=== PATIENT | female | born 1990 | race Caucasian/White ===

== ENCOUNTER 2021-03-14 20:18 | Emergency (ER) | payer OTHER, SELFPAY ==
[2021-03-14 20:23] VITALS: BP 153/106; PULSE 108; RESP 20; TEMP 36.6; O2SAT 98
--- NOTE | 2021-03-14 20:45 | DI.CT_ITS ---
Exam(s) CT FACIAL WO EXAM: CT FACIAL WO CLINICAL HISTORY: ball injury. TECHNIQUE: Imaging Protocol: Axial computed tomography images with coronal and sagittal reformatted images were created and reviewed COMPARISON: No exams were available for comparison FINDINGS: CT Face: Facial Bones: No definite fracture is noted in facial bones. Sinuses and Mastoids: Unremarkable. Globes, extraocular muscles, optic nerves and retrobulbar fat: Normal. Upper aerodigestive tract: Normal. Mandible and bilateral temporomandibular joints: Normal. Soft tissues: Right periorbital and infraorbital soft tissue swelling. No focal fluid collection is seen. IMPRESSION: 1. No acute facial fracture. 2. Right periorbital and infraorbital soft tissue swelling. RADIATION DOSE DELIVERED: 604.79mGy.cm Total DLP 604.79mGy.cm Total DLP DATA REPOSITORY: All CT scans at this facility are submitted to the National Radiology Data Registry (NRDR) Dose Index Registry (DIR) with the [employer] (A[employer]). RADIATION OPTIMIZATION: All CT scans at this facility use at least one of these dose optimization te chniques: automated exposure control; mA and/or kV adjustment per patient size (includes targeted exa ms where dose is matched to clinical indication); or iterative reconstruction.
--- NOTE | 2021-03-14 20:58 | ED.GENADUL_ITS ---
Discharge Plan Disposition Patient Disposition: HOME Condition: Stable Discharge Details Clinical Impression: Periorbital ecchymosis Primary Care Provider: Ruth Ulloa ED Provider: Kristal Mendez Home Meds and New Rx's Prescriptions: Continued omeprazole 20 mg capsule,delayed release(DR/EC) 20 mg PO DAILY Qty: 90 RF: 4 Mirena 1 EACH intrauterine device 1 ea Intrauterine DAILY RF: 0 acetaminophen [Tylenol] 325 mg Tablet 650 mg PO PRN PRNRF: 0 Discharge Instructions Additional Instructions: Cool compresses Steroid from ibuprofen Tylenol as needed for discomfort Should you have vision change, worsening pain, difficulty moving your eyes or any change in your peripheral vision, please return immediately to the emergency room Medical Decision Making CT does not show evidence of acute abnormality per radiology interpretation review Tylenol Tylenol as needed for pain Return precautions discussed with patient and she expressed understanding understanding Medical Records Medical records reviewed: Yes I reviewed the patient's medical records. HPI General Mode of arrival: ambulatory . Date/Time Provider Initiated Documentation: 03/14/21 20:39 . Limitations to Documentation: no limitations . Information obtained by: patient . HPI Narrative: This 30-year-old female presents with report of possible injury to right orbit just prior to arrival at 1130. Patient states she was fine softball and was in the outfield when she missed the ball, hit her in the right eye. She denies loss of consciousness. She had blurred vision several seconds which resolved completely. She presents here secondary to person distant and worsening swelling to her eye. She denies any vision changes currently. She denies any nausea or vomiting. She denies any headache. She denies any neck pain or strength or sensation change. She denies any chance of . Related Data Home Medications Medication Instructions Recorded Confirmed Mirena 1 ea INTRAUTERINE DAILY 03/05/13 03/14/21 omeprazole 20 mg capsule,delayed 20 mg PO DAILY #90 tab-cap 07/03/20 03/14/21 release acetaminophen [Tylenol] 650 mg PO PRN PRN 03/14/21 03/14/21 Previous Rx's Medication Instructions Recorded omeprazole 20 mg capsule,delayed 20 mg PO DAILY #90 tab-cap 07/03/20 release Allergies Allergy/AdvReac Type Severity Reaction Status Date / Time No Known Drug Allergies Allergy Verified 03/14/21 20:26 General Stated Complaint: EyeProblem HARSHA: 4 Review of Systems All systems reviewed & are unremarkable except as noted in HPI and below PFSH Medical History (Updated 03/14/21 @ 22:56 by YESENIA Olivrea) Allergic rhinitis (01/20/17) Chlamydia trachomatis infection 02/2013 rx Elevated BP without diagnosis of hypertension Encounter for routine gynecological examination (02/15/12) GERD (gastroesophageal reflux disease) (12/09/16) Increased body mass index (BMI) IUD (intrauterine device) in place 01/2010 MIRENA Screening cholesterol level Surgical History EGD - MAC (12/28/16) Family History (Updated 07/04/20 @ 14:57 by Adela Haynes) Grandmother Diabetes TYPE II Father Essential hypertension Social History (Updated 07/04/20 @ 14:56 by Adela Haynes) Smoking/Tobacco Use Status: Never Second Hand Exposure: Yes Smoking risk assessment performed?: Yes Alcohol Intake: current Alcohol Intake frequency: a few times a week Alcohol type: beer, wine and hard liquor Drug use: Never Substance use type: does not use Caregiver/Support person: No Household members: other Details: roomate Communication Needs: None Do you need help understanding health information?: Rarely 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: Yes 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: dog(s) Sexually active: Yes Do you think of yourself as: straight/heterosexual Current gender identity: female What is your relationship status?: living with partner How often do you talk on the phone with friends or family?: three or more times per week How often do you get together with friends or relatives?: twice per week How often do you attend confucianism or holiness services?: decline to answer Do you belong to any clubs or organized social groups?: no Panel score (0-1 are the most socially isolated patients): 2 What type of physical activity do you participate in: other Details: GYM Duration: 45-60 minutes/day Frequency: 3-4 times per week Seatbelt use: sometimes 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 Do you feel safe in your relationship?: Yes Exam Const General: cooperative, comfortable and no acute distress Eyes Pupils: PERRL EOM: EOM intact bilaterally Other: Right periorbital ecchymosis with tenderness inferiorly into the maxillary region with, no crepitus, no hemotympanum, Neck Other: No carotid bruit or midline tenderness Resp Effort & Inspection: normal respiratory effort Cardio Rate: regular rate Skin General skin exam: no rashes or lesions noted Neuro General: patient alert and patient oriented x3 Cranial Nerves: CN's II-XI intact bilaterally Cognition: normal cognition Speech: speech normal Gait: normal gait Motor: strength 5/5 throughout Course Vital Signs Vital signs: Vital Signs Temperature 36.6 C 03/14/21 20:23 Pulse 108 H 03/14/21 20:23 Respiratory Rate 20 03/14/21 20:23 Blood Pressure 153/106 H 03/14/21 20:23 Pulse Oximetry 98 03/14/21 20:23 Temperature 36.6 C 03/14/21 20:23 Temperature Source Temporal Artery Scan 03/14/21 20:23 Pulse 108 H 03/14/21 20:23 Respiratory Rate 20 03/14/21 20:23 Respiratory Effort 03/14/21 20:30 Blood Pressure 153/106 H 03/14/21 20:23 Blood Pressure Position Sitting 03/14/21 20:23 Pulse Oximetry 98 03/14/21 20:23 Pain Level 2 03/14/21 20:23 Lab/Test Results Lab/Test Results: POC- Test(urine) Negative
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
== END 2021-03-14 23:01 | disposition home or self-care (01) ==
PROVIDERS: Emergency Provider Physician Assistant
DX: S00.11XA Contusion of right eyelid and periocular area, initial encounter (principal); W21.07XA Struck by softball, initial encounter
CPT/HCPCS: 81025; 99284; 70486; 99283

== ENCOUNTER 2021-08-27 11:51 | Outpatient (REF) | payer OTHER, SELFPAY ==
--- NOTE | 2021-08-27 11:00 | PAPFT_PTH ---
PATIENT: Raven Knight LOC: [facility] U#:[id number] AGE/SX: 30/F ROOM: RE08/27/[address]: Yesica Parham DO : 1990 BED: DIS: 08/27/2021 SPEC #: [id number] RECD: 08/27/21 12:39 STATUS: FADUMO REQ #: [id number] HERVE: 08/27/21 11:[address]: Yesica Parham [facility] Cytology RECD BY: Kristal Cummins ENTERED: 08/27/21 12:39 SP TYPE: PAPFT OTHR DR: Ruth Ulloa APRN Tissues: 1 - CX/ENDOCX FOR PAP SMEARS Procedures: PAP THIN PREP/[facility] Screening HPV DNA PROBE Comments: [id number] (CHLAMYDIA/GC)
[2021-08-28 15:08] LABS: Chlamydia Result Negative (Negative); GC Result Negative (Negative)
== END 2021-08-27 11:52 | disposition home or self-care (01) ==
LOC: LBN 11:51
PROVIDERS: Visit Provider Obstetrics & Gynecology
DX: Z11.3 Encounter for screening for infections with a predominantly sexual mode of transmission (principal); Z12.4 Encounter for screening for malignant neoplasm of cervix; Z11.51 Encounter for screening for human papillomavirus (HPV); Z97.5 Presence of (intrauterine) contraceptive device
CPT/HCPCS: 87491; 87591; 88142; 87624

== ENCOUNTER 2021-09-10 02:13 | Outpatient (CLI) | payer OTHER, SELFPAY ==
[2021-09-10 09:21] LABS: ALT 33 U/L (14-59); AST 15 U/L (15-37); Albumin 3.8 g/dL (3.4-5.0); Alkaline Phosphatase 60 U/L (46-116); Anion Gap 8.7 mmol/L (3-11); BUN 17 mg/dL (7-18); Bilirubin, Total 0.4 mg/dL (0.2-1.0); CO2 26.3 mmol/L (21.0-32.0); CREATININE 0.8 mg/dL (0.55-1.02); Calcium 8.2 mg/dL (8.5-10.1); Calculated LDL 120 mg/dL (<100); Chloride 107 mmol/L (98-107); Cholesterol 192 mg/dL (<200); Glucose 95 mg/dL (74-106); HDL Cholesterol 56 mg/dL (40-60); Potassium 4.2 mmol/L (3.5-5.1); Sodium 142 mmol/L (136-145); TSH (W/Ref FT4) 2.29 uIU/mL (0.36-3.74); Total Protein 6.7 g/dL (6.4-8.2); Triglyceride 82 mg/dL (<150)
== END 2021-09-10 02:14 | disposition home or self-care (01) ==
LOC: LBO 02:13
DX: Z00.00 Encounter for general adult medical examination without abnormal findings (principal)
CPT/HCPCS: 36415; 80053; 80061; 84443

== ENCOUNTER 2021-09-24 09:14 | Outpatient (REF) | payer OTHER, SELFPAY ==
--- NOTE | 2021-09-24 07:30 | SKI_PTH ---
PATIENT: Raven Knight LOC: [facility] U#:[id number] AGE/SX: 31/F ROOM: RE09/24/[address]: Ruth Ulloa APRN : 1990 BED: DIS: 09/24/2021 SPEC #: [id number] RECD: 09/24/21 12:49 STATUS: FADUMO REMauri #: [id number] HERVE: 09/24/21 07:[address]: Ruth Ulloa DEPT: Surgical Specimen RECD BY: Kristal Cummins Tissues: 1 - SKIN BIOPSY(SHAVE/PUNCH) Procedures: GROSS AND MICRO LEVEL 4 Comments: [id number]
== END 2021-09-24 09:15 | disposition home or self-care (01) ==
LOC: LBN 09:14
DX: L81.4 Other melanin hyperpigmentation (principal); L57.8 Other skin changes due to chronic exposure to nonionizing radiation
CPT/HCPCS: 88305

== ENCOUNTER 2021-11-28 20:10 | Emergency (ER) | payer OTHER, SELFPAY ==
[2021-11-28 20:21] VITALS: BP 157/114; PULSE 89; RESP 18; TEMP 36.6; O2SAT 99
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
[2021-11-28] MEDS: Acetaminophen 500 MG TAB 1000 MG PO (21:34)
[2021-11-28] MEDS: Cyclobenzaprine 10 MG TAB PO (21:34)
--- NOTE | 2021-11-28 21:35 | DI.VRAD_ITS ---
PROCEDURE INFORMATION: Exam: XR Right Foot Exam date and time: 11/28/2021 9:11 PM Age: 31 years old Clinical indication: Right; Patient HX: R foot pain TECHNIQUE: Imaging protocol: Radiologic exam of the Right foot. Views: 3 or more views. COMPARISON: No relevant prior studies available. FINDINGS: Bones/joints: No evidence of fracture. Negative for dislocation. Negative for bony erosion or destructive change. Plantar calcaneal spur and Achilles enthesophyte formation noted. Tarsometatarsal alignment appears normal. Soft tissues: No soft tissue air. No foreign bodies. Soft tissue swelling noted in the forefoot. IMPRESSION: No acute osseous abnormality. If symptoms persist, follow-up imaging is advised. Dictated and Authenticated by: Eduardo Kwan MD. Ordering:XIN Torres MD
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
[2021-11-28 22:11] VITALS: BP 143/108; PULSE 93; TEMP 36.6; O2SAT 100
[2021-11-28 22:17] VITALS: BP 134/94; PULSE 64; RESP 18; O2SAT 99
[2021-11-28] MEDS: Cyclobenzaprine 10 MG TAB, 3 TABS/BTL PO (22:17)
[2021-11-28 22:45] VITALS: O2SAT 100
== END 2021-11-28 22:26 | disposition home or self-care (01) ==
PROVIDERS: Emergency Provider Registered Nurse Emergency
DX: S93.601A Unspecified sprain of right foot, initial encounter (principal); S39.012A Strain of muscle, fascia and tendon of lower back, initial encounter; I10 Essential (primary) hypertension; Z77.22 Contact with and (suspected) exposure to environmental tobacco smoke (acute) (chronic); V49.40XA Driver injured in collision with unspecified motor vehicles in traffic accident, initial encounter; Y92.414 Local residential or business street as the place of occurrence of the external cause
CPT/HCPCS: 99284; 72110; 73630

== ENCOUNTER 2023-06-27 13:04 | Outpatient (REF) | payer OTHER, SELFPAY ==
[2023-06-28 13:22] LABS: Chlamydia Result Negative (Negative); GC Result Negative (Negative)
== END 2023-06-27 13:05 | disposition home or self-care (01) ==
LOC: LBN 13:04
PROVIDERS: PCP Nurse Practitioner Family; Visit Provider Advanced Practice Midwife
DX: N89.8 Other specified noninflammatory disorders of vagina (principal)
CPT/HCPCS: 87491; 87591; 87480; 87510; 87660

== ENCOUNTER 2023-07-07 16:01 | Outpatient (REF) | payer OTHER, SELFPAY | END 2023-07-07 16:02 | disposition home or self-care (01) | LOC: LBN 16:01 | PROVIDERS: PCP Nurse Practitioner Family; Visit Provider Obstetrics & Gynecology | DX: N89.8 Other specified noninflammatory disorders of vagina (principal) | CPT/HCPCS: 87480; 87510; 87660 ==

== ENCOUNTER 2023-08-18 12:20 | Outpatient (REF) | payer OTHER, SELFPAY | END 2023-08-18 12:21 | disposition home or self-care (01) | LOC: LBN 12:20 | PROVIDERS: PCP Nurse Practitioner Family; Visit Provider Advanced Practice Midwife | DX: N89.8 Other specified noninflammatory disorders of vagina (principal) | CPT/HCPCS: 87480; 87510; 87660 ==

== ENCOUNTER 2023-09-10 05:14 | Emergency (ER) | payer OTHER, SELFPAY ==
[2023-09-10 05:16] VITALS: BP 186/123; PULSE 87; RESP 16; TEMP 36.6; O2SAT 97
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
[2023-09-10] MEDS: Amoxicillin 875/Clav. 125 TAB PO (05:25)
== END 2023-09-10 05:47 | disposition home or self-care (01) ==
PROVIDERS: Emergency Provider Student in an Organized Health Care Education/Training Program; PCP Nurse Practitioner Family
DX: H66.91 Otitis media, unspecified, right ear; J06.9 Acute upper respiratory infection, unspecified; I10 Essential (primary) hypertension; Z79.899 Other long term (current) drug therapy; K21.9 Gastro-esophageal reflux disease without esophagitis
CPT/HCPCS: 99282; 99283

== ENCOUNTER 2023-10-21 06:45 | Emergency (ER) | payer OTHER, SELFPAY ==
--- NOTE | 2023-10-21 06:45 | DI.RAD_ITS ---
Exam(s) XR FOOT LT COMPLETE EXAM: XR FOOT LT COMPLETE CLINICAL HISTORY: trauma. TECHNIQUE: 2D digital imaging was performed. Three views. COMPARISON: CR,XR XR FOOT RT COMPLETE from 11/28/2021 FINDINGS: BONES: No acute fracture is present. No bony destructive lesion is seen. Tiny calcaneal spurs. JOINTS: No dislocation present. SOFT TISSUE: Normal. IMPRESSION: Unremarkable radiographs of the left foot. DATA REPOSITORY: RADIATION DOSE DELIVERED:
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
[2023-10-21 06:55] VITALS: BP 178/113; PULSE 95; RESP 18; TEMP 36.6; O2SAT 100
== END 2023-10-21 07:39 | disposition home or self-care (01) ==
PROVIDERS: Emergency Provider Emergency Medicine; PCP Nurse Practitioner Family
DX: M79.672 Pain in left foot (principal); W22.8XXA Striking against or struck by other objects, initial encounter
CPT/HCPCS: 99283; 73630

== ENCOUNTER 2024-10-12 15:43 | Emergency (ER) | payer OTHER, SELFPAY ==
[2024-10-12 15:44] VITALS: BP 175/131; PULSE 88; RESP 20; TEMP 36.6; O2SAT 99
--- NOTE | 2024-10-12 16:15 | DI.RAD_ITS ---
Exam(s) XR FOOT RT COMPLETE EXAM: XR FOOT RT COMPLETE CLINICAL HISTORY: injury, nodule dorsal foot. TECHNIQUE: 2D digital imaging was performed of the right foot. Three images were obtained. AP, obl ique and lateral views were obtained. COMPARISON: CR XR FOOT LT COMPLETE from 10/21/2023 FINDINGS: BONES: No acute fracture is present. No bony destructive lesion is seen. There is an enthesophyte at the posterior calcaneus. There is a moderate-sized plantar calcaneal spur. JOINTS: No dislocation present. SOFT TISSUE: There is a faint rounded density in the dorsal soft tissues at the level of the metatars als which may represent a subcutaneous or skin lesion. No radiopaque foreign bodies are seen. The b ones are intact. IMPRESSION: No acute fracture or dislocation. DATA REPOSITORY: RADIATION DOSE DELIVERED:
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
[2024-10-12 18:03] VITALS: BP 168/120; PULSE 71; RESP 18; O2SAT 97
== END 2024-10-12 18:05 | disposition home or self-care (01) ==
LOC: ER 17:14
PROVIDERS: Emergency Provider Student in an Organized Health Care Education/Training Program; PCP Nurse Practitioner Family
DX: M79.89 Other specified soft tissue disorders (principal); M79.671 Pain in right foot; W17.89XA Other fall from one level to another, initial encounter; R03.0 Elevated blood-pressure reading, without diagnosis of hypertension
CPT/HCPCS: 99283 ×2; 73630

== ENCOUNTER 2024-10-26 00:57 | Outpatient (CLI) | payer OTHER, SELFPAY ==
[2024-10-26 13:25] LABS: HCT 39.2 % (36.0-46.0); HGB 13.2 g/dL (11.2-15.7); MCH 31.4 pg (27.0-33.0); MCHC 33.7 % (32.0-36.0); MCV 93 fL (80-95); MPV 10.3 fL (8.0-11.0); Platelet Count 253 10^3/uL (130-400); RDW 12.9 % (11.7-14.6); RDW-SD 44.1 fL; WBC 5.28 10^3/uL (4.4-10.8)
[2024-10-26 13:54] LABS: ALT 23 U/L (14-59); AST 13 U/L (15-37); Albumin 3.7 g/dL (3.4-5.0); Alkaline Phosphatase 57 U/L (46-116); Anion Gap 9.3 mmol/L (3-11); BUN 13 mg/dL (7-18); Bilirubin, Total 0.4 mg/dL (0.2-1.0); CO2 26.7 mmol/L (21.0-32.0); CREATININE 1.1 mg/dL (0.55-1.02); Calcium 8.7 mg/dL (8.5-10.1); Calculated LDL 101 mg/dL (<100); Chloride 103 mmol/L (98-107); Cholesterol 189 mg/dL (<200); Glucose 92 mg/dL (74-106); HDL Cholesterol 58 mg/dL (>or=50); Potassium 4.1 mmol/L (3.5-5.1); Sodium 139 mmol/L (136-145); Total Protein 6.7 g/dL (6.4-8.2); Triglyceride 153 mg/dL (<150)
== END 2024-10-26 00:58 | disposition home or self-care (01) ==
LOC: LBO 00:57
PROVIDERS: PCP Nurse Practitioner Family; Visit Provider Nurse Practitioner Family
DX: I10 Essential (primary) hypertension; E66.01 Morbid (severe) obesity due to excess calories; K21.9 Gastro-esophageal reflux disease without esophagitis
CPT/HCPCS: 36415; 80053; 80061; 85027